=== PATIENT | female | born 1990 | race Caucasian/White ===

== ENCOUNTER 2020-08-28 08:01 | Emergency (ER) | payer MEDICAID, SELFPAY ==
[2020-08-28 08:09] VITALS: BP 135/84; PULSE 87; RESP 16; TEMP 36.7; O2SAT 98
--- NOTE | 2020-08-28 08:24 | ED.GENADUL_ITS ---
Discharge Plan Disposition Patient Disposition: HOME Condition: Stable Discharge Details Clinical Impression: Avulsion fracture of ankle ED Provider: Julian Chang Home Meds and New Rx's Prescriptions: New naproxen [Naprosyn] 500 mg tablet 500 mg PO BID PRNQty: 20 RF: 0 oxycodone-acetaminophen [Percocet] 5-325 mg tablet 1 tab PO Q8H PRNQty: 8 RF: 0 Discharge Instructions Instructions: Ankle Fracture (ED) Additional Instructions: Naprosyn and Percocet as directed, Percocet may cause drowsiness and/or constipation. Rest, elevate, cool compresses every 2 hours for 20 minutes. Use walking boot until reevaluation with orthopedics. I recommend contacting their office later today for prompt outpatient reevaluation. I do recommend using crutches as needed, advance activity with the crutches as tolerated. Please watch for new or worsening symptoms and return to the ER for any concerns. I have given you the name and number of our local orthopedic, Dr. Correa Referrals: Yonis Correa MD [ [facility] STAFF PHYSICIAN] - Medical Decision Making 30-year-old female mechanical fall last night after her foot and ankle gave out because it was asleep. Now complaining of knee, ankle, foot pain. Will obtain x-rays and reassess. Knee appears stable. There is swelling and ecchymosis across the lateral ankle and foot. Very well could be a avulsion fracture, [place] fracture, etc. versus soft tissue injury. X-ray of foot, ankle, knee read by radiology as potential ankle avulsion fracture. Of note the x-ray of the knee was read as a left knee however anatomically it was a right knee film. I did confirm this with radiology. Discussed findings with patient and family. Patient be given a single Lortab now. We will give a prescription of additional 8 tablets. Patient placed into a walking boot and given crutches with teaching. Will give orthopedic referral. Patient and family are comfortable this plan and have no additional questions or concerns. HPI General Mode of arrival: wheelchair . Date/Time Provider Initiated Documentation: 08/28/20 08:20 . Limitations to Documentation: no limitations . Information obtained by: patient and family . HPI Narrative: This is a 30-year-old female who denies any significant past medical history presenting to the ER today complaining of right knee, ankle, foot pain. Yesterday evening- night she was sitting on the couch, her foot fell asleep, and when she stood up her foot and ankle gave out on her causing her to fall and twist her leg. She denies striking her head or any other injuries. Reports that the pain in her foot and ankle is moderate, pain in the knee is mild, both pain levels increase with movement or bearing weight. She denies any current numbness, tingling, weakness. She denies any previous injury to that foot, ankle, knee. She has no other concerns or complaints at this time. Related Data Home Medications Medication Instructions Recorded Confirmed naproxen [Naprosyn] 500 mg PO BID PRN #20 tab 08/28/20 oxycodone-acetaminophen [Percocet] 1 tab PO Q8H PRN #8 tab 08/28/20 Previous Rx's Medication Instructions Recorded naproxen [Naprosyn] 500 mg PO BID PRN #20 tab 08/28/20 oxycodone-acetaminophen [Percocet] 1 tab PO Q8H PRN #8 tab 08/28/20 Allergies Allergy/AdvReac Type Severity Reaction Status Date / Time Penicillins Allergy Unverified 08/28/20 08:13 General Stated Complaint: Orthopedic DAHLIA: 3 Review of Systems Constitutional Constitutional: Denies weakness Gastrointestinal Gastrointestinal: Denies nausea and Denies vomiting Musculoskeletal Musculoskeletal: Reports arthralgias, Denies numbness and Denies tingling Integumentary/Breasts Skin/Breast: Denies erythema Neurologic Neurologic: Denies numbness, Denies tingling and Denies weakness [facility] Social History Smoking/Tobacco Use Status: Never Alcohol Intake: current Alcohol Intake frequency: 0-2 drinks per day Drug use: Daily Substance use type: marijuana Do you feel safe at home: Yes Exam Const General: cooperative, healthy appearing, comfortable and no acute distress Orientation: alert and awake HENMT Head: normal to inspection, normocephalic and atraumatic Mouth: moist mucous membranes Eyes Conjunctivae: conjunctivae normal Neck Neck: normal visual inspection, trachea midline and supple Resp Effort & Inspection: normal respiratory effort and able to speak in complete sentences Cardio Rate: regular rate Rhythm: regular rhythm Skin General skin exam: no rashes or lesions noted Neuro General: patient alert, patient awake, moves all extremities and no focal motor deficits Sensory Exam: no sensory deficits noted Extrem Right lower extremity: normal capillary refill, knee Details: normal to inspection, tenderness (Diffuse mild anterior), normal ROM and knee ligament exam normal; no swelling, ankle Details: abnormal to inspection, tenderness, swelling and abnormal ROM (Limited secondary to discomfort) and foot Details: normal capillary refill, abnormal to inspection, tenderness, toes with normal ROM and ecchymosis Other: Right ankle and foot, lateral aspect with diffuse mild swelling, tenderness, minimal ecchymosis. Skin is intact. Neuro, vascular, tendon intact. Normal capillary refill. Without bony point tenderness. Psych Appearance: grossly normal Mental Status: mental status grossly normal Course Vital Signs Vital signs: Vital Signs Temperature 36.7 C 08/28/20 08:09 Pulse 87 08/28/20 08:09 Respiratory Rate 16 08/28/20 08:09 Blood Pressure 135/84 08/28/20 08:09 Pulse Oximetry 98 08/28/20 08:09 Temperature 36.7 C 08/28/20 08:09 Temperature Source Skin 08/28/20 08:09 Pulse 87 08/28/20 08:09 Respiratory Rate 16 08/28/20 08:09 Respiratory Effort Non-Labored 08/28/20 08:16 Blood Pressure 135/84 08/28/20 08:09 Blood Pressure Position Sitting 08/28/20 08:09 Pulse Oximetry 98 08/28/20 08:09 Oxygen Delivery Method Room Air 08/28/20 08:09 Oxygen Flow Rate 0 08/28/20 08:09 Pain Level 10 08/28/20 08:16
--- NOTE | 2020-08-28 08:36 | DI.RAD_ITS ---
EXAM: XR FOOT RT COMPLETE CLINICAL HISTORY: fall/twist/pain. TECHNIQUE: 2D digital imaging was performed. COMPARISON: No exams were available for comparison FINDINGS: BONES: No acute fracture is present. No bony destructive lesion is seen. JOINTS: No dislocation present. SOFT TISSUE: Normal. IMPRESSION: Unremarkable radiographs of the right foot. DATA REPOSITORY: RADIATION DOSE DELIVERED:
--- NOTE | 2020-08-28 08:39 | DI.RAD_ITS ---
EXAM: XR ANKLE RT COMPLETE CLINICAL HISTORY: fall/twist/pain TECHNIQUE: 2D digital imaging was performed. COMPARISON: No exams were available for comparison FINDINGS: There is soft tissue swelling around the lateral malleolus. There is a tiny bony density beneath th e tip of the lateral malleolus which could represent a an avulsion or chip fracture or be the result of previous trauma. There is no ankle mortise widening or talar dome defect. IMPRESSION: Question of avulsion fracture from the lateral malleolus versus soft tissue calcification.
--- NOTE | 2020-08-28 08:41 | DI.RAD_ITS ---
EXAM: XR KNEE LT 3V AP,LAT,DAVIAN CLINICAL HISTORY: fall/pain/twist. TECHNIQUE: 2D digital imaging was performed. COMPARISON: No exams were available for comparison FINDINGS: BONES: No acute fracture is present. No bony destructive lesion is seen. JOINTS: The knee is normally aligned. No joint effusion is seen. SOFT TISSUE: Normal. IMPRESSION: Normal radiographs of the left knee. DATA REPOSITORY: RADIATION DOSE DELIVERED:
[2020-08-28] MEDS: oxyCODONE 5 mg/Acetaminophen 325 mg TAB 1 TAB PO (09:45)
[2020-08-28 10:04] VITALS: BP 132/95; PULSE 72; RESP 18; TEMP 36.6; O2SAT 96
--- NOTE | 2020-08-28 10:15 | DI.RAD_ITS ---
EXAM: XR KNEE RT 3V AP,LAT,DAVIAN CLINICAL HISTORY: FALL/PAIN/TWIST. TECHNIQUE: 2D digital imaging was performed. COMPARISON: No exams were available for comparison FINDINGS: BONES: No acute fracture is present. No bony destructive lesion is seen. JOINTS: The knee is normally aligned. No joint effusion is seen. SOFT TISSUE: Normal. IMPRESSION: Normal radiographs of the right knee. DATA REPOSITORY: RADIATION DOSE DELIVERED:
== END 2020-08-28 10:04 | disposition home or self-care (01) ==
PROVIDERS: Emergency Provider Physician Assistant; PCP Nurse Practitioner Family
DX: S82.64XA Nondisplaced fracture of lateral malleolus of right fibula, initial encounter for closed fracture (principal); M25.561 Pain in right knee; M25.571 Pain in right ankle and joints of right foot; X50.9XXA Other and unspecified overexertion or strenuous movements or postures, initial encounter
CPT/HCPCS: 27786; 73562; 99282; 73610; 73630; 99281; E0114; L4361